=== PATIENT | female | born 1945 | race Caucasian/White ===

== ENCOUNTER 2016-02-20 17:50 | Emergency (ER) | payer SELFPAY ==
[~2016-02-20] VITALS: Ht 160 cm; Wt 96.6 kg
[2016-02-20 18:10] VITALS: BP 148/68
== END 2016-02-20 21:57 | disposition home or self-care (01) ==
LOC: ER 17:54
DX: M25.511 Pain in right shoulder (principal)
CPT/HCPCS: 73030; 99284; A4606; Z7610